=== PATIENT | female | born 1990 | race Caucasian/White ===

== ENCOUNTER → 2016-05-23 01:15 | Emergency (ER) | payer OTHER ==
[~2016-05-23 01:15] MED LIST: ALPRAZOLAM PO; BACTRIM DS TABL1 TA1 PO; BIRTH CONTROL PILL; BUSPAR; BUSPAR5 MG PO; CIPRO; CLEOCIN HCL150 MG PO; ERYTHROMYCIN O3.5 GM OD; HYDROCODONE-A1 UDTA4 PO; IBUPROFEN PO; LEXAPRO; LEXAPRO20 MG PO; LORTAB 10-3251 EACH PO; LORTAB 10-5001 EACH PO; LORTAB 5/500 TA1 TA1 PO; MEDROL DOSEPAK4 MG; NO MEDICATIONS; PEN-VEE K PO; PHENERGAN25 MG PO; PREDNISONE; ROBAXIN500 MG PO; SEROQUEL PO; SEROQUEL300 M1 PO; SILVADENE TOP; TRINESSA TABLE1 EACH PO; TUSSIN MAX15 MG/5 M1; VIBRAMYCIN100 M1 PO; VICODIN 5/1 TAB 5/50 PO; VICODIN 5/500 T1 TAB PO; VOLTAREN75 MG PO
== END | disposition home or self-care (01) ==
LOC: CED 01:15
DX: Z53.21 Procedure and treatment not carried out due to patient leaving prior to being seen by health care provider (principal)